=== PATIENT | male | born 1965 | race Caucasian/White ===

== ENCOUNTER 2017-09-06 15:22 | Emergency (ER) | payer BC ==
--- NOTE | 2017-09-06 18:47 | EDM.PDOC ---
ED HPI GENERAL MEDICAL PROBLEM - General Chief Complaint: Abdominal Pain Stated Complaint: ABDOMINAL PAIN / VOMITING Time Seen by Provider: 09/06/17 16:41 Source of Information: Reports: Patient History Limitations: Reports: No Limitations - History of Present Illness INITIAL COMMENTS - FREE TEXT/NARRATIVE: This patient comes in for right-sided abdominal pain. He said he's kind of been constipated for a few days but this morning after he ate breakfast he started having severe right-sided abdominal pain. He vomited once. He had a bowel movement this morning that seemed okay there was no fever. It hurts when he is sitting or bending. He denies any significant past medical history. No history of blood in the urine or kidney stones Right Lower Abdomen Pain Score (Numeric/FACES): 8 - Related Data Allergies Allergy/AdvReac Type Severity Reaction Status Date / Time No Known Allergies Allergy Verified 09/06/17 16:34 Home Meds: Home Meds buPROPion HCl [Bupropion HCl Sr] 200 mg PO DAILY 09/06/17 [History] Past Medical History Neurological History: Reports: Headaches, Chronic Psychiatric History: Reports: Anxiety - Past Surgical History HEENT Surgical History: Reports: Adenoidectomy, Tonsillectomy Social & Family History - Tobacco Use Smoking Status *Q: Former Smoker Used Tobacco, but Quit: Yes Month Tobacco Last Used: 2012 - Caffeine Use Caffeine Use: Reports: Coffee - Recreational Drug Use Recreational Drug Use: No ED ROS GENERAL - Review of Systems Review Of Systems: ROS reveals no pertinent complaints other than HPI. ED EXAM, GI/ABD - Physical Exam Exam: See Below Exam Limited By: No Limitations General Appearance: Alert, WD/WN, Moderate Distress (He is up pacing around but is able to lie down for exam) Eyes: Bilateral: Normal Appearance Head: Atraumatic Respiratory/Chest: No Respiratory Distress, Lungs Clear Cardiovascular: Regular Rate, Rhythm GI/Abdominal Exam: Normal Bowel Sounds, Soft, Non-Tender, No Mass Extremities: Normal Inspection Neurological: Alert, Oriented Psychiatric: Normal Affect Skin Exam: Warm, Dry Course - Vital Signs Last Recorded V/S: Last Vital Signs Temp 36.2 C 09/06/17 16:30 Pulse 67 09/06/17 16:30 Resp 16 09/06/17 16:30 BP 139/84 09/06/17 16:30 Pulse Ox 97 11/15/17 16:30 - Orders/Labs/Meds Orders: Active Orders 24 hr Category Date Time Status Abdomen 2V AP Flat Upright [CR] Stat Exams 09/06/17 16:51 Taken Labs: Laboratory Tests 09/06/17 09/06/17 09/06/17 Range/Units 17:00 17:00 18:15 WBC 10.3 (4.5-11.0) K/uL RBC 5.43 (4.30-5.90) M/uL Hgb 16.5 H (12.0-15.0) g/dL Hct 46.5 (40.0-54.0) % MCV 86 (80-98) fL MCH 30 (27-31) pg MCHC 36 (32-36) % Plt Count 218 (150-400) K/uL Neut % (Auto) 77 H (36-66) % Lymph % (Auto) 15 L (24-44) % [place] % (Auto) 6 (2-6) % Eos % (Auto) 2 (2-4) % Baso % (Auto) 0 (0-1) % Sodium 142 (140-148) mmol/L Potassium 4.1 (3.6-5.2) mmol/L Chloride 106 (100-108) mmol/L Carbon Dioxide 30 (21-32) mmol/L Anion Gap 6.2 (5.0-14.0) mmol/L BUN 13 (7-18) mg/dL Creatinine 1.4 H (0.8-1.3) mg/dL Est Cr Clr Drug Dosing 68.52 mL/min Estimated GFR (MDRD) 53 L (>60) Glucose 131 H (74-106) mg/dL Calcium 8.5 (8.5-10.1) mg/dL Total Bilirubin 0.5 (0.2-1.0) mg/dL AST 23 (15-37) U/L ALT 50 (12-78) U/L Alkaline Phosphatase 106 (46-116) U/L Total Protein 6.9 (6.4-8.2) g/dL Albumin 3.7 (3.4-5.0) g/dL Globulin 3.2 (2.3-3.5) g/dL Albumin/Globulin Ratio 1.2 (1.2-2.2) Urine Color Brown Urine Appearance Cloudy Urine pH 5.0 (4.5-8.0) Ur Specific [place] 1.030 (1.008-1.030) Urine Protein 30 H (NEGATIVE) mg/dL Urine Glucose (UA) Normal (NEGATIVE) mg/dL Urine Ketones Negative (NEGATIVE) mg/dL Urine Occult Blood Large (NEGATIVE) Urine Nitrite Negative (NEGAITVE) Urine Bilirubin Negative (NEGATIVE) Urine Urobilinogen Normal (NORMAL) mg/dL Ur Leukocyte Esterase Negative (NEGATIVE) Urine RBC >100 H (0-5) Urine WBC 0-5 (0-5) Ur Epithelial Cells Rare Amorphous Sediment Many Urine Bacteria Many Urine Mucus Moderate - Radiology Interpretation Free Text/Narrative:: Flat and upright abdominal film which was done to check for constipation actually shows a stone which appears to be at the right ureteropelvic junction. It looks like it might be 5-6 mm and irregularly shaped. CT scan was not done on this patient - Re-Assessments/Exams Free Text/Narrative Re-Assessment/Exam: 09/06/17 18:42 Labs were noted. He does have a lot of blood in the urine. Departure - Departure Time of Disposition: 18:43 Disposition: Home, Self-Care 01 Condition: Fair Clinical Impression: Ureterolithiasis - Discharge Information Referrals: Chet Fuentes MD [Primary Care Provider] - Additional Instructions: You have a kidney stone which is visible on the x-ray it's on the left side of the x-ray which corresponds to the right side of your abdomen and just below the rib cage. It looks like it's at the start of the ureter where it comes off the kidney. There is blood in the urine which is also indicative of a kidney stone. For pain first of all take ibuprofen (Motrin or Advil) 400 up to 800 mg 3 times per day. This is usually very effective in relaxing the ureter and will help pass the stone. For pain take Percocet 5/325, #20 tablets, one or 2 every 4 hours as needed for pain. This medication can cause sedation and impair driving or operating machinery. Tamsulosin 0.4 mg was also prescribed. You take one tablet daily. Many urologist believe this is helpful in passing kidney stones. If you develop a fever then you should be seen by a doctor right away. Strain the urine so he'll know when the stone passes. If you haven't pass the stone within 2 or 3 days then see your . and a simple x-ray should show whether or not the stone is moving. Your Dr. can decide whether or not you need to see a urologist - My Orders Last 24 Hours: My Active Orders 09/06/17 16:51 Abdomen 2V AP Flat Upright [CR] Stat - Assessment/Plan Last 24 Hours: My Active Orders 09/06/17 16:51 Abdomen 2V AP Flat Upright [CR] Stat
--- NOTE | 2017-09-07 08:27 | CR ---
Moderate fecal residual. Nonobstructive bowel gas pattern. 12 mm stone overlying the right renal shad ow indicate a kidney stone.
== END 2017-09-06 18:58 | disposition home or self-care (01) ==
LOC: JP.ED 15:22
DX: N20.2 Calculus of kidney with calculus of ureter (principal); F41.9 Anxiety disorder, unspecified; Z79.899 Other long term (current) drug therapy; Z87.891 Personal history of nicotine dependence
CPT/HCPCS: 36415; 74020; 74020-26; 80053; 81001; 85025; 99284